=== PATIENT | female | born 1960 | race Caucasian/White ===

== ENCOUNTER 2018-03-28 11:22 | Emergency (ER) | payer OTHER ==
[~2018-03-28] VITALS: Ht 154.9 cm; Wt 66.7 kg
[2018-03-28 11:28] VITALS: Ht 154.9 cm; Wt 66.7 kg
[2018-03-28 12:42] VITALS: BP 149/90
== END 2018-03-28 13:09 | disposition home or self-care (01) ==
LOC: ED 11:22
DX: S29.011A Strain of muscle and tendon of front wall of thorax, initial encounter (principal); I10 Essential (primary) hypertension; E11.9 Type 2 diabetes mellitus without complications; Z90.49 Acquired absence of other specified parts of digestive tract; X58.XXXA Exposure to other specified factors, initial encounter; Y93.89 Activity, other specified; Y92.89 Other specified places as the place of occurrence of the external cause; Y99.8 Other external cause status
CPT/HCPCS: J1885; Q0092

== ENCOUNTER 2018-12-14 14:55 | Emergency (ER) | payer OTHER ==
[~2018-12-14] VITALS: Ht 165.1 cm; Wt 68.0 kg
[2018-12-14 14:58] VITALS: Ht 165.1 cm; Wt 68.0 kg
[2018-12-14 17:29] LABS: BASOPHIL % 0.4 % (0-2); PLATELET COUNT 172 x10^3mcL (130-400); RED CELL DISTRIBUTION WIDTH 13.3 % (11.5-14.5)
[2018-12-14 17:44] LABS: CALCIUM 9.6 mg/dL (8.5-10.1); CARBON DIOXIDE 23.1 mmol/L (21-32); CHLORIDE SERUM 93 mmol/L (98-107); CREATININE SERUM 0.8 mg/dL (0.6-1.0); GFR1 > 60 mL/min; GLUCOSE SERUM 303 mg/dL (74-106); POTASSIUM SERUM 3.6 mmol/L (3.5-5.1); SODIUM SERUM 129 mmol/L (136-145)
[2018-12-14 17:52] LABS: ALBUMIN 4.1 g/dL (3.4-5.0); ALKALINE PHOSPHATASE 49 U/L (46-116); ALT/SGPT 67 U/L (14-59); AST/SGOT 68 U/L (15-37); BILIRUBIN TOTAL 1.38 mg/dL (0.20-1.00)
[2018-12-14 17:53] LABS: TOTAL PROTEIN, SERUM 8.7 g/dL (6.4-8.2)
[2018-12-14 19:38] VITALS: BP 145/74
== END 2018-12-14 19:38 | disposition home or self-care (01) ==
LOC: ED 14:55
PROVIDERS: Emergency Medicine
DX: R51 Headache (principal); R53.1 Weakness; R30.0 Dysuria; R35.0 Frequency of micturition; E11.65 Type 2 diabetes mellitus with hyperglycemia; I10 Essential (primary) hypertension; Z90.49 Acquired absence of other specified parts of digestive tract
CPT/HCPCS: 82962; J1885; J2405; J7030

== ENCOUNTER 2019-06-08 11:10 | Emergency (ER) | payer OTHER ==
[~2019-06-08] VITALS: Ht 162.6 cm; Wt 63.5 kg
[2019-06-08 12:17] LABS: CALCIUM 9.5 mg/dL (8.5-10.1); CARBON DIOXIDE 30.4 mmol/L (21-32); CHLORIDE SERUM 103 mmol/L (98-107); CREATININE SERUM 0.6 mg/dL (0.6-1.0); GFR1 > 60 mL/min; GLUCOSE SERUM 170 mg/dL (74-106); POTASSIUM SERUM 5.1 mmol/L (3.5-5.1); SODIUM SERUM 137 mmol/L (136-145)
[2019-06-08 12:22] LABS: ALBUMIN 3.7 g/dL (3.4-5.0); ALKALINE PHOSPHATASE 48 U/L (46-116); ALT/SGPT 29 U/L (14-59); AST/SGOT 22 U/L (15-37); BILIRUBIN TOTAL 0.7 mg/dL (0.20-1.00); LIPASE 131 IU/L (73-393); TOTAL PROTEIN, SERUM 7.4 g/dL (6.4-8.2)
[2019-06-08 12:34] LABS: BASOPHIL % 0.3 % (0-2); PLATELET COUNT 197 x10^3mcL (130-400)
[2019-06-08 13:24] VITALS: BP 154/89
== END 2019-06-08 13:24 | disposition home or self-care (01) ==
LOC: ED 11:10
PROVIDERS: Emergency Medicine
DX: K52.9 Noninfective gastroenteritis and colitis, unspecified (principal); Z90.49 Acquired absence of other specified parts of digestive tract
CPT/HCPCS: J2405; J7030